=== PATIENT | male | born 1980 | race Caucasian/White ===

== ENCOUNTER 2016-07-28 08:10 | Emergency (ER) | payer BC, OTHER ==
[2016-07-28 08:15] VITALS: BP 137/95; PULSE 72; RESP 20; TEMP 98.8
--- NOTE | 2016-07-28 08:22 | ED ---
ENT HPI - General Chief complaint: ENT Stated complaint: sore throat Time Seen by Provider: 07/28/16 08:17 Source: patient, RN notes reviewed Mode of arrival: ambulatory Limitations: no limitations - History of Present Illness Initial comments: This a 36-year-old male presents emergency Department chief complaint sore throat. Patient states she's had sore throat for 1 week. Patient states is progressively getting worse. Patient states his tonsils are swollen. He did have some exudates. Patient's had low-grade temps at home. Patient's been taken Tylenol and Motrin. Patient denies any sick contacts no fatigue no history of mono. Patient offers no other complaints. - Related Data Previous Rx's Medication Instructions Recorded Acetaminophen-Codeine 300-30mg 1 each PO Q6H PRN #4 tablet 05/27/14 [Tylenol #3] Amoxicillin 500 mg PO Q8H #30 capsule 05/27/14 Ibuprofen [Motrin] 800 mg PO Q8HR PRN #30 tab 05/27/14 Amoxicillin 500 mg PO Q8H #30 capsule 07/28/16 Allergies Allergy/AdvReac Type Severity Reaction Status Date / Time No Known Allergies Allergy Verified 07/28/16 08:15 Review of Systems ROS Statement: Those systems with pertinent positive or pertinent negative responses have been documented in the HPI. ROS Other: All systems not noted in ROS Statement are negative. Past Medical History Past Medical History: No Reported History History of Any Multi-Drug Resistant Organisms: None Reported Past Surgical History: Hernia Repair Past Psychological History: No Psychological Hx Reported Smoking Status: Current every day smoker Past Alcohol Use History: None Reported Past Drug Use History: None Reported General Exam Limitations: no limitations General appearance: alert, in no apparent distress Head exam: Present: atraumatic, normocephalic, normal inspection Eye exam: Present: normal appearance, PERRL, EOMI. Absent: scleral icterus, conjunctival injection, periorbital swelling ENT exam: Present: normal exam, mucous membranes moist, TM's normal bilaterally , normal external ear exam. Absent: normal oropharynx (Erythema) Neck exam: Present: normal inspection, full ROM, lymphadenopathy. Absent: tenderness, meningismus Respiratory exam: Present: normal lung sounds bilaterally. Absent: respiratory distress, wheezes, rales, rhonchi, stridor Cardiovascular Exam: Present: regular rate, normal rhythm, normal heart sounds. Absent: systolic murmur, diastolic murmur, rubs, gallop, clicks Neurological exam: Present: alert Course Vital Signs 07/28/16 08:13 Temperature 98.8 F Pulse Rate 72 Respiratory 20 Rate Blood Pressure 137/95 O2 Sat by Pulse 95 Oximetry Medical Decision Making - Medical Decision Making 36-year-old present for sore throat. Patient has erythematous posterior pharynx ,'s lymphadenopathy erythematous tonsils. Abdomen present for 1 week he we treated with Amoxil at this time. Disposition Clinical Impression: Acute pharyngitis Disposition: HOME SELF-CARE Condition: Stable Instructions: Pharyngitis (ED) Additional Instructions: Please return to the Emergency Department if symptoms worsen or any other concerns. Prescriptions: Amoxicillin 500 mg PO Q8H #30 capsule Referrals: None,Stated [Primary Care Provider] - 1-2 days Time of Disposition: 08:22
== END 2016-07-28 08:27 | disposition home or self-care (01) ==
LOC: EC 08:10
DX: J02.9 Acute pharyngitis, unspecified (principal); F17.200 Nicotine dependence, unspecified, uncomplicated
CPT/HCPCS: 99282

== ENCOUNTER 2017-03-21 15:07 | Emergency (ER) | payer OTHER ==
[2017-03-21 15:45] VITALS: BP 136/93; PULSE 88; RESP 20; TEMP 98.1
--- NOTE | 2017-03-21 16:23 | ED ---
Skin/Abscess/FB HPI - General Chief complaint: Skin/Abscess/Foreign Body Stated complaint: bumps on lower back Time Seen by Provider: 03/21/17 15:55 Source: patient Mode of arrival: ambulatory Limitations: no limitations - History of Present Illness Initial comments: 36-year-old male patient presented to the emergency room today for evaluation of rash to his lower back. Patient states that symptoms started proximal july 3 days ago. He states that the rash has started to spread. He states that the rash is very painful. He denies any fevers or chills with this. Denies any drainage from the rash area. Denies any contact with new substances including soaps, lotions, creams, detergents, foods, or medications. Patient states that he did have chickenpox as a child. Denies any history of shingles. Patient denies any recent shortness breath, chest pain, abdominal pain, nausea, vomiting , diarrhea, constipation, back pain, numbness, tingling, dizziness, weakness, hematuria, dysuria, urinary urgency, urinary frequency, headache, visual changes , or any other complaints. - Related Data Previous Rx's Medication Instructions Recorded Acyclovir [Zovirax] 800 mg PO 5XD #35 tab 03/21/17 Hydrocodone/Acetaminophen [[place] 1 tab PO Q6HR PRN #10 tab 03/21/17 5-325] Ibuprofen [Motrin] 600 mg PO Q8HR PRN #30 tab 03/21/17 Allergies Allergy/AdvReac Type Severity Reaction Status Date / Time Milk Containing Products AdvReac Swelling Verified 03/21/17 16:03 [Dairy] tomato AdvReac Swelling Verified 03/21/17 16:03 Review of Systems ROS Statement: Those systems with pertinent positive or pertinent negative responses have been documented in the HPI. ROS Other: All systems not noted in ROS Statement are negative. Past Medical History Past Medical History: No Reported History History of Any Multi-Drug Resistant Organisms: None Reported Past Surgical History: Hernia Repair Past Psychological History: No Psychological Hx Reported Smoking Status: Current every day smoker Past Alcohol Use History: None Reported Past Drug Use History: None Reported General Exam Limitations: no limitations General appearance: alert, in no apparent distress, other (This is a well- developed, well-nourished adult male patient in no acute distress. Vital signs upon presentation are temperature 98.1F, pulse 88, respirations 20, blood pressure 136/93, pulse ox 100% on room air.) Eye exam: Present: normal appearance, PERRL, EOMI. Absent: scleral icterus, conjunctival injection, periorbital swelling ENT exam: Present: normal exam, normal oropharynx, mucous membranes moist Respiratory exam: Present: normal lung sounds bilaterally. Absent: respiratory distress, wheezes, rales, rhonchi, stridor Cardiovascular Exam: Present: regular rate, normal rhythm, normal heart sounds. Absent: systolic murmur, diastolic murmur, rubs, gallop, clicks Back exam: Present: rash noted (Noted to the lower back. Vesicular, surrounding erythema, 2 patches of grouped vesicles following the L4 distribution towards the right.) Neurological exam: Present: alert, oriented X3, CN II-XII intact Psychiatric exam: Present: normal affect, normal mood Skin exam: Present: warm, dry, intact, normal color. Absent: rash Course Vital Signs 03/21/17 15:42 Temperature 98.1 F Pulse Rate 88 Respiratory 20 Rate Blood Pressure 136/93 O2 Sat by Pulse 100 Oximetry Medical Decision Making - Medical Decision Making 36-year-old male patient presented to the emergency department today for complaints of rash to his lower back. Symptoms started approximately 3 days ago. Physical examination did reveal 2 areas of grouped vesicles to the lower back. Symptoms are consistent with shingles. Symptoms followed the L4 distribution. Patient denied any fever or chills. Patient will be discharged home with prescription for acyclovir, ibuprofen, and Warba for pain control. He is instructed to follow-up with his primary care physician for recheck in 1- 2 days. He is instructed to return here immediately for any new, worsening, or concerning symptoms. He verbalizes understanding and agrees with this plan. Disposition Clinical Impression: Shingles Disposition: HOME SELF-CARE Condition: Good Instructions: Shingles (ED) Additional Instructions: Take medications as directed. Follow-up with her primary care physician for recheck in 1-2 days. Return here immediately for any new, worsening, or concerning symptoms. Prescriptions: Acyclovir [Zovirax] 800 mg PO 5XD #35 tab Hydrocodone/Acetaminophen [Warba 5-325] 1 tab PO Q6HR PRN #10 tab PRN Reason: Pain Ibuprofen [Motrin] 600 mg PO Q8HR PRN #30 tab PRN Reason: Pain Referrals: None,Stated [Primary Care Provider] - 1-2 days Time of Disposition: 16:22
== END 2017-03-21 16:31 | disposition home or self-care (01) ==
LOC: EC 15:07
DX: B02.9 Zoster without complications (principal); F17.200 Nicotine dependence, unspecified, uncomplicated; Z91.011 Allergy to milk products; Z91.018 Allergy to other foods
CPT/HCPCS: 99283

== ENCOUNTER 2018-01-07 13:42 | Emergency (ER) | payer OTHER ==
[2018-01-07 13:57] VITALS: BP 132/87; PULSE 62; RESP 18; TEMP 98.1
[2018-01-07] MEDS ORDERED: IBUPROFEN 600 MG TAB PO STA (14:02)
[2018-01-07] MEDS ORDERED: ACETAMINOPHEN TAB 500 MG TAB PO STA (14:02)
--- NOTE | 2018-01-07 14:20 | ED ---
ENT HPI - General Chief complaint: ENT Stated complaint: Throat pain Time Seen by Provider: 01/07/18 13:49 Source: patient Mode of arrival: ambulatory Limitations: no limitations - History of Present Illness Initial comments: 37-year-old male patient presents to the emergency department today for evaluation of upper respiratory symptoms starting this morning. Chief complaint is sore throat. Patient states it feels swollen and hurts to swallow. States the pain is equal on both sides. States he has associated nasal congestion and cough. Denies any sputum production. He denies fevers or chills. He denies taking any medication for his symptoms. Patient denies any recent rash, shortness breath, chest pain, abdominal pain, nausea, vomiting, diarrhea, constipation, back pain, numbness, tingling, dizziness, weakness, hematuria, dysuria, urinary urgency, urinary frequency, headache, visual changes , or any other complaints. - Related Data Previous Rx's Medication Instructions Recorded Acyclovir [Zovirax] 800 mg PO 5XD #35 tab 03/21/17 Hydrocodone/Acetaminophen [[place] 1 tab PO Q6HR PRN #10 tab 03/21/17 5-325] Ibuprofen [Motrin] 600 mg PO Q8HR PRN #30 tab 03/21/17 Allergies Allergy/AdvReac Type Severity Reaction Status Date / Time Milk Containing Products AdvReac Swelling Verified 03/21/17 16:03 [Dairy] tomato AdvReac Swelling Verified 03/21/17 16:03 Review of Systems ROS Statement: Those systems with pertinent positive or pertinent negative responses have been documented in the HPI. ROS Other: All systems not noted in ROS Statement are negative. Past Medical History Past Medical History: No Reported History History of Any Multi-Drug Resistant Organisms: None Reported Past Surgical History: Hernia Repair Past Psychological History: No Psychological Hx Reported Smoking Status: Current every day smoker Past Alcohol Use History: None Reported Past Drug Use History: None Reported General Exam Limitations: no limitations General appearance: alert, in no apparent distress, other (This well-developed, well-nourished adult male patient in no acute distress. Vital signs upon presentation are temperature 98.1F, pulse 62, respirations 18, blood pressure 132/87, pulse ox 95% on room air.) Eye exam: Present: normal appearance, PERRL, EOMI. Absent: scleral icterus, conjunctival injection, periorbital swelling ENT exam: Present: normal exam, mucous membranes moist, TM's normal bilaterally , normal external ear exam. Absent: normal oropharynx (Pharyngeal erythema, tonsillar hypertrophy, no tonsillar exudate noted) Neck exam: Present: normal inspection. Absent: tenderness, meningismus, lymphadenopathy Respiratory exam: Present: normal lung sounds bilaterally. Absent: respiratory distress, wheezes, rales, rhonchi, stridor Cardiovascular Exam: Present: regular rate, normal rhythm, normal heart sounds. Absent: systolic murmur, diastolic murmur, rubs, gallop, clicks GI/Abdominal exam: Present: soft, normal bowel sounds. Absent: distended, tenderness, guarding, rebound, rigid Neurological exam: Present: alert, oriented X3, CN II-XII intact Psychiatric exam: Present: normal affect, normal mood Skin exam: Present: warm, dry, intact, normal color. Absent: rash Course Vital Signs 01/07/18 13:54 Temperature 98.1 F Pulse Rate 62 Respiratory 18 Rate Blood Pressure 132/87 O2 Sat by Pulse 95 Oximetry Medical Decision Making - Medical Decision Making 37-year-old male patient presented to the emergency department today for evaluation of upper respiratory symptoms with chief complaint of sore throat. Physical examination did reveal pharyngeal erythema and tonsillar hypertrophy. There is no tonsillar exudate or lymphadenopathy. Patient is afebrile with normal vital signs. Strep screen was negative. Patient symptoms are consistent with viral upper respiratory infection. He is educated regarding supportive care. Instructed to take Profen for anti-inflammatory effects. Instructed to take [id number] nasal decongestants. He is instructed to follow-up with his primary care physician for recheck in 1-2 days. Return parameters discussed in detail. He verbalizes understanding and agrees with this plan. - Lab Data Lab Results 01/07/18 Range/Units 14:14 Group A Strep Rapid Negative (Negative) Disposition Clinical Impression: Viral upper respiratory infection Disposition: HOME SELF-CARE Condition: Good Instructions: Upper Respiratory Infection (ED) Additional Instructions: Increase fluids. Take [id number] nasal decongestants for symptom relief. Take Tylenol and Motrin for pain and fever control. Follow-up with your primary care physician for recheck in 1-2 days. Return here immediately for any new, worsening, or concerning symptoms. Is patient prescribed a controlled substance at d/c from ED?: No Referrals: Genoveva Palacios MD [Primary Care Provider] - 1-2 days Time of Disposition: 14:45
== END 2018-01-07 14:59 | disposition home or self-care (01) ==
LOC: EC 13:42
DX: J06.9 Acute upper respiratory infection, unspecified (principal); F17.200 Nicotine dependence, unspecified, uncomplicated; Z91.011 Allergy to milk products; Z91.018 Allergy to other foods
CPT/HCPCS: 87081; 87430; 99283

== ENCOUNTER 2018-06-11 08:41 | Emergency (ER) | payer OTHER ==
[2018-06-11 08:56] VITALS: RESP 18
--- NOTE | 2018-06-11 10:49 | ED ---
ENT HPI - General Chief complaint: ENT Stated complaint: poss strep throat Time Seen by Provider: 06/11/18 09:43 Source: patient, RN notes reviewed Mode of arrival: ambulatory Limitations: no limitations - History of Present Illness Initial comments: 37-year-old male presents emergency Department for fever cough congestion sore throat. Patient states she just feels achy all does not feel well. Patient's concerned about possible strep throat. Patient does admit that he has a cough which is nonproductive denies any chest pain no shortness of breath. Denies any nausea vomiting. Patient has not taken any recent Tylenol Motrin. - Related Data Previous Rx's Medication Instructions Recorded Amoxicillin 875 mg PO Q12HR #20 tablet 06/11/18 Allergies Allergy/AdvReac Type Severity Reaction Status Date / Time Milk Containing Products AdvReac Swelling Verified 06/11/18 10:26 [Dairy] tomato AdvReac Swelling Verified 06/11/18 10:26 Review of Systems ROS Statement: Those systems with pertinent positive or pertinent negative responses have been documented in the HPI. ROS Other: All systems not noted in ROS Statement are negative. Past Medical History Past Medical History: No Reported History History of Any Multi-Drug Resistant Organisms: None Reported Past Surgical History: Hernia Repair Past Psychological History: No Psychological Hx Reported Smoking Status: Current every day smoker Past Alcohol Use History: None Reported Past Drug Use History: None Reported General Exam Limitations: no limitations General appearance: alert, in no apparent distress Head exam: Present: atraumatic, normocephalic, normal inspection Eye exam: Present: normal appearance, PERRL, EOMI. Absent: scleral icterus, conjunctival injection, periorbital swelling ENT exam: Present: mucous membranes moist, TM's normal bilaterally. Absent: normal exam, normal oropharynx (Mild erythema) Neck exam: Present: normal inspection. Absent: tenderness, meningismus, lymphadenopathy Respiratory exam: Present: normal lung sounds bilaterally. Absent: respiratory distress, wheezes, rales, rhonchi, stridor Cardiovascular Exam: Present: regular rate, normal rhythm, normal heart sounds. Absent: systolic murmur, diastolic murmur, rubs, gallop, clicks GI/Abdominal exam: Present: soft, normal bowel sounds. Absent: distended, tenderness, guarding, rebound, rigid Skin exam: Present: warm, dry, intact, normal color. Absent: rash Course Vital Signs 06/11/18 08:52 Temperature 98.8 F Pulse Rate 90 Respiratory 18 Rate Blood Pressure 143/94 O2 Sat by Pulse 98 Oximetry Medical Decision Making - Medical Decision Making 37-year-old male presented from for fever cough congestion is breath. Patient's strep is negative, influenza negative. Patient has a restaurant infection possible underlying pharyngitis we treated. Return parameters were discussed. - Lab Data Lab Results 06/11/18 Range/Units 10:10 Influenza Type A RNA Not Detected (Not Detectd) Influenza Type B (PCR) Not Detected (Not Detectd) Group A Strep Rapid Negative (Negative) Disposition Clinical Impression: Pharyngitis Disposition: HOME SELF-CARE Condition: Stable Instructions (If sedation given, give patient instructions): Pharyngitis (ED), Upper Respiratory Infection (ED) Additional Instructions: Please return to the Emergency Department if symptoms worsen or any other concerns. Prescriptions: Amoxicillin 875 mg PO Q12HR #20 tablet Is patient prescribed a controlled substance at d/c from ED?: No Referrals: Genoveva Palacios MD [Primary Care Provider] - 1-2 days Time of Disposition: 11:20
[2018-06-11 11:40] VITALS: BP 132/89; PULSE 75; TEMP 98.5
== END 2018-06-11 11:40 | disposition home or self-care (01) ==
LOC: EC 08:41
DX: J02.9 Acute pharyngitis, unspecified (principal); F17.200 Nicotine dependence, unspecified, uncomplicated; Z91.011 Allergy to milk products; Z91.018 Allergy to other foods
CPT/HCPCS: 87081; 87430; 87502; 99283

== ENCOUNTER 2019-11-19 21:22 | Emergency (ER) | payer OTHER ==
[2019-11-19] MEDS ORDERED: KETOROLAC 15 MG/ML 1 ML VIAL IM STA (21:48)
--- NOTE | 2019-11-19 22:06 | XR ---
EXAMINATION TYPE: XR knee 4V RT DATE OF EXAM: 11/19/2019 CLINICAL HISTORY: pain TECHNIQUE: Three views of the right knee are obtained. COMPARISON: None. FINDINGS: There is no acute fracture/dislocation. The tri-compartment joint spaces appear within no rmal limits. Small suprapatellar joint effusion. Prepatellar soft tissue edema noted. IMPRESSION: There is no acute fracture or dislocation.ICD 10 NO FRACTURE, INITIAL EVALUATION
[2019-11-19 22:34] VITALS: RESP 19; TEMP 97.8
--- NOTE | 2019-11-19 22:51 | ED ---
General Adult HPI - General Chief complaint: Extremity Injury, Lower Stated complaint: [facility] R Knee Injury Time Seen by Provider: 11/19/19 21:37 Source: patient, RN notes reviewed, old records reviewed Mode of arrival: ambulatory Limitations: no limitations - History of Present Illness Initial comments: 39-year-old male patient is either chief complaint right knee pain. Patient reports that yesterday he was stepping on a highlow. He reports that he slipped and then his other knee came up and hit the bottom of a piece of steel. Patient is having pain in the anterior knees having pain with ambulation. Denies falling to the ground reports he caught himself. Denies any other acute complaints. Systemic: Pt denies fatigue, fever/chills, rash. Pt denies weakness, night sweats, weight loss. Neuro: Pt denies headache, visual disturbances, syncope or pre-syncope. HEENT: Pt denies ocular discharge or irritation, otalgia, rhinorrhea, phar yngitis or notable lymphadenopathy. Cardiopulmonary: Pt denies chest pain, SOB, heart palpitations, dyspnea on exertion. Abdominal/GI: Pt denies abdominal pain, n/v/d. : Pt denies dysuria, burning w/ urination, frequency/urgency. Denies new onset urinary or bowel incontinence. MSK: Pt denies loss of strength in extremities. Neuro: Pt denies new onset weakness, paresthesias. - Related Data Previous Rx's Medication Instructions Recorded Amoxicillin 875 mg PO Q12HR #20 tablet 06/11/18 Allergies Allergy/AdvReac Type Severity Reaction Status Date / Time Milk Containing Products AdvReac Swelling Verified 11/19/19 21:32 [Dairy] tomato AdvReac Swelling Verified 11/19/19 21:32 Review of Systems ROS Statement: Those systems with pertinent positive or pertinent negative responses have been documented in the HPI. ROS Other: All systems not noted in ROS Statement are negative. Past Medical History Past Medical History: No Reported History History of Any Multi-Drug Resistant Organisms: None Reported Past Surgical History: Hernia Repair Past Psychological History: No Psychological Hx Reported Smoking Status: Current every day smoker Past Alcohol Use History: None Reported Past Drug Use History: None Reported General Exam - General Exam Comments Initial Comments: Constitutional: NAD, AOX3, Pt has pleasant affect. HEENT: NC/AT, trachea midline, neck supple, no lymphadenopathy. External ears appear normal, without discharge. Mucous membranes moist. EOM intact. There is no scleral icterus. No pallor noted. Cardiopulmonary: RRR, no murmurs, rubs or gallops, no JVD noted. Lungs CTAB in anterior and posterior lizama. No peripheral edema. Neuro: CN II-XII grossly intact. No raccon eyes MSK: Right anterior knee mildly tender to palpation. Mild amount of anterior swelling. Full active range of motion. Ambulatory with some discomfort. No posterior calf tenderness bilaterally, homans sign negative bilaterally. Posterior tibialis. Sensation intact in upper and lower extremities. Full active ROM in upper and lower extremities, 5/5 stregnth. Limitations: no limitations Course Vital Signs 11/19/19 11/19/19 21:29 22:31 Temperature 98.1 F 97.8 F Pulse Rate 84 57 L Respiratory 18 19 Rate Blood Pressure 153/97 134/86 O2 Sat by Pulse 97 97 Oximetry Medical Decision Making - Medical Decision Making 39-year-old male patient presents ED chief complaint right knee pain/injury. Patient vital signs are stable, afebrile. Physical exam displayed right knee mildly tender to palpation. Plain film was negative for acute process. Patient discharge with crutches as needed will follow up with orthopedics and occupational health for clearance to return to work. Case discussed with Dr. Quiroz. Disposition Clinical Impression: Knee contusion Disposition: HOME SELF-CARE Condition: Stable Instructions (If sedation given, give patient instructions): Knee Pain (ED) Additional Instructions: Follow-up with primary care provider in 1-2 days. Follow-up with either occupational health orthopedics in 1-2 days and for clearance to return to work. Use crutches as needed. Use Tylenol andMotrin as needed. return to ER if any worsening symptoms. Is patient prescribed a controlled substance at d/c from ED?: No Referrals: Genoveva Palacios MD [Primary Care Provider] - 1-2 days Isaac Caba MD [STAFF PHYSICIAN] - 1-2 days
[2019-11-19 23:10] VITALS: BP 132/95; PULSE 64
== END 2019-11-19 23:10 | disposition home or self-care (01) ==
LOC: EC 21:22
DX: S80.01XA Contusion of right knee, initial encounter (principal); F17.200 Nicotine dependence, unspecified, uncomplicated; Z91.011 Allergy to milk products; Z91.018 Allergy to other foods; W01.0XXA Fall on same level from slipping, tripping and stumbling without subsequent striking against object, initial encounter
CPT/HCPCS: 73564; 96372; 99284; J1885

== ENCOUNTER 2021-08-15 09:54 | Emergency (ER) | payer OTHER, BC ==
[2021-08-15 10:13] VITALS: RESP 16; TEMP 98.1
[2021-08-15] MEDS ORDERED: KETOROLAC 15 MG/ML 1 ML VIAL IM STA (10:59)
[2021-08-15] MEDS ORDERED: PENICILLIN G BENZATHINE 1,200,000 UNIT/2 ML SYRINGE IM STA (11:41)
--- NOTE | 2021-08-15 11:48 | ED ---
ENT HPI - General Chief complaint: ENT Stated complaint: throat pain Time Seen by Provider: 08/15/21 10:29 Source: patient, RN notes reviewed Mode of arrival: ambulatory Limitations: no limitations - History of Present Illness Initial comments: This is a 41-year-old male who presents to the emergency department for a sore throat. Patient states that symptoms began yesterday. He has a history of recurrent episodes of strep throat. Denies any coughing or fevers. States that yesterday he felt like he was swallowing glass. He also feels enlarged lymph nodes on his neck. He does have enlarged tonsils, and he and his PCP have been discussing a tonsillectomy. He has also seen white spots on his tonsils. Denies any fevers, chills, cough, dyspnea, chest pain, palpitations, abdominal pain, nausea, vomiting, diarrhea, back pain, or headaches. MD complaint: sore throat Onset/Timin -: days(s) Location: throat Associated Symptoms: pain with swallowing, sore throat - Related Data Previous Rx's Medication Instructions Recorded Amoxicillin 875 mg PO Q12HR #20 tablet 06/11/18 Allergies Allergy/AdvReac Type Severity Reaction Status Date / Time Milk Containing Products AdvReac Swelling Verified 08/15/21 10:13 [Dairy] tomato AdvReac Swelling Verified 08/15/21 10:13 Review of Systems ROS Statement: Those systems with pertinent positive or pertinent negative responses have been documented in the HPI. ROS Other: All systems not noted in ROS Statement are negative. Past Medical History Past Medical History: No Reported History History of Any Multi-Drug Resistant Organisms: None Reported Past Surgical History: Hernia Repair Past Psychological History: No Psychological Hx Reported Smoking Status: Current every day smoker Past Alcohol Use History: None Reported Past Drug Use History: None Reported General Exam Limitations: no limitations General appearance: alert, in no apparent distress Head exam: Present: atraumatic, normocephalic, normal inspection Expanded Throat exam: other (3+ tonsillar hypertrophy with exudates. Pharyngeal erythema.) Neck exam: Present: other (Anterior cervical lymphadenopathy.) Respiratory exam: Present: normal lung sounds bilaterally. Absent: respiratory distress, wheezes, rales, rhonchi, stridor Cardiovascular Exam: Present: regular rate, normal rhythm, normal heart sounds. Absent: systolic murmur, diastolic murmur, rubs, gallop, clicks Neurological exam: Present: alert, oriented X3, CN II-XII intact Psychiatric exam: Present: normal affect, normal mood Skin exam: Present: warm, dry, intact, normal color. Absent: rash Course Vital Signs 08/15/21 08/15/21 10:11 12:22 Temperature 98.1 F Pulse Rate 89 64 Respiratory 16 16 Rate Blood Pressure 130/88 148/92 O2 Sat by Pulse 98 Oximetry Medical Decision Making - Medical Decision Making This is a 41-year-old male who presents to the emergency department for a sore throat. Given the tonsilar hypertrophy and exudates, patient's symptoms are consistent with strep pharyngitis. Patient does note that it is common for him to have a negative rapid strep test with a positive culture. Whenever he is treated with an antibiotic, symptoms improve rapidly. Will treat the patient with IM penicillin G given his history for strep throat, his symptoms, and phy sical examination. IM Toradol provided for pain. Advised to alternate with Tylenol and ibuprofen at home for pain. Return precautions reviewed in depth, the patient is instructed to return to the emergency department with any new, worsening, or concerning symptoms. Patient verbalized understanding. This case was discussed in detail with the attending ED physician. Presentation, findings, and treatment plan discussed in detail as well. - Lab Data Lab Results 08/15/21 Range/Units 11:06 Group A Strep Rapid Negative (Negative) Disposition Clinical Impression: Pharyngitis Disposition: HOME SELF-CARE Instructions (If sedation given, give patient instructions): Pharyngitis (ED), Strep Throat (ED), Tonsillitis (ED) Additional Instructions: Return to the emergency department with any new, worsening, or concerning symptoms. Alternate with Tylenol and ibuprofen as needed for pain. Is patient prescribed a controlled substance at d/c from ED?: No Referrals: Genoveva Palacios MD [Primary Care Provider] - 1-2 days
[2021-08-15 12:23] VITALS: BP 148/92; PULSE 64
== END 2021-08-15 12:22 | disposition home or self-care (01) ==
LOC: EC 09:54
DX: J02.9 Acute pharyngitis, unspecified (principal); F17.200 Nicotine dependence, unspecified, uncomplicated; Z91.018 Allergy to other foods; Z91.011 Allergy to milk products
CPT/HCPCS: 87081; 87430; 99283; 96372; J0561; J1885

== ENCOUNTER 2022-04-12 08:19 | Emergency (ER) | payer BC, OTHER ==
[2022-04-12 08:32] VITALS: BP 136/92; PULSE 68; RESP 18; TEMP 98
--- NOTE | 2022-04-12 08:45 | ED ---
Extremity Problem HPI - General Chief complaint: Extremity Problem,Nontraumatic Stated complaint: rt shoulder pain Time Seen by Provider: 04/12/22 08:33 Source: patient, RN notes reviewed Mode of arrival: ambulatory Limitations: no limitations - History of Present Illness Initial comments: This is a 41-year-old male who presents to the emergency department for right shoulder pain. Patient states that this been present for 2 weeks. Denies any injuries. He takes Aleve, which he states is beneficial. The pain is the most prominent when he tries to sleep, because he sleeps on the right side. Patient does have notable psoriasis on the bilateral forearms. Denies any history of psoriatic arthritis. He is not currently being treated for the psoriasis. The pain is exacerbated by movement. He has not noticed any swelling or increase in redness. Denies any fevers, chills, sore throat, cough, dyspnea, chest pain, palpitations, abdominal pain, nausea, vomiting, diarrhea, back pain, or headaches. MD Complaint: extremity pain Onset/Timin -: week(s) Location: right, upper extremity Associated Symptoms: denies other symptoms - Related Data Previous Rx's Medication Instructions Recorded Amoxicillin 875 mg PO Q12HR #20 tablet 06/11/18 Cyclobenzaprine [Flexeril] 5 mg PO TID PRN #15 tablet 04/12/22 predniSONE 50 mg PO DAILY 5 Days #5 tab 04/12/22 Allergies Allergy/AdvReac Type Severity Reaction Status Date / Time Milk Containing Products AdvReac Swelling Verified 04/12/22 08:32 [Dairy] tomato AdvReac Swelling Verified 04/12/22 08:32 Review of Systems ROS Statement: Those systems with pertinent positive or pertinent negative responses have been documented in the HPI. ROS Other: All systems not noted in ROS Statement are negative. Past Medical History Past Medical History: No Reported History History of Any Multi-Drug Resistant Organisms: None Reported Past Surgical History: Hernia Repair Past Psychological History: No Psychological Hx Reported Smoking Status: Current every day smoker Past Alcohol Use History: None Reported Past Drug Use History: None Reported General Exam Limitations: no limitations General appearance: alert, in no apparent distress Head exam: Present: atraumatic, normocephalic, normal inspection Respiratory exam: Present: normal lung sounds bilaterally. Absent: respiratory distress, wheezes, rales, rhonchi, stridor Cardiovascular Exam: Present: regular rate, normal rhythm, normal heart sounds. Absent: systolic murmur, diastolic murmur, rubs, gallop, clicks Extremities exam: Present: other (No swelling, erythema, or ecchymosis to the right shoulder. There is no overlying tenderness. Pain with adduction and inversion. Elevation of the arm induces pain at approximately 180. Driver Medic strength is equal and intact. 2+ radial pulses. Capillary refill less than 1 second.) Skin exam: Present: other (Crusting and scaling consistent with psoriasis on the bilateral forearms.) Course Vital Signs 04/12/22 08:30 Temperature 98 F Pulse Rate 68 Respiratory 18 Rate Blood Pressure 136/92 O2 Sat by Pulse 100 Oximetry Medical Decision Making - Medical Decision Making This is a 41-year-old male who presents to the emergency department for right shoulder pain. Was pt. sent in by a medical professional or institution? @ -No Did you speak to anyone other than the patient for history? @ -No Did you review nursing and triage notes? @ -Agree, accurate with regards to the patient's symptoms. Were old charts reviewed? @ -No Differential Diagnosis? @ -Fracture, rotator cuff injury, tendinitis, psoriatic arthritis, rheumatoid arthritis, DVT, dislocation, this is not an to be an all-inclusive list. X-rays interpreted by me (1pt min.)? @ -My interpretation of the XR of the right shoulder identifies no fractures or dislocations. What testing was considered but not performed? (CT, X-rays, U/S, labs)? Why? @ -None What meds were considered but not given? Why? @ -I offered Toradol for the pain, however he declined. Did you discuss the management of the patient with other professionals? @ -No Did you reconcile home meds? @ -No Was smoking cessation discussed for >3mins.? @ -No Was critical care preformed (if so, how long)? @ -No Were there social determinants of health that impacted care today? How? (Homelessness, low income, unemployed, alcoholism, drug addiction, transportation, low edu. Level, literacy, decrease access to med. care, care home, rehab)? @ -No Was there de-escalation of care discussed even if they declined? (Discuss DNR or withdrawal of care, Hospice)? @ -No What co-morbidities impacted this encounter? (DM, HTN, Smoking, COPD, CAD, Cancer, CVA, Hep., AIDS, mental health diagnosis, sleep apnea, morbid obesity)? @ -Psoriasis Was patient admitted / discharged? @ -Discharged. XR of the right shoulder obtained revealing no acute findings. No abnormalities have been identified at this time. Rx for 5 day course of Prednisone provided. Advised he avoid taking over the counter antiinflammatories with the prednisone. Rx for Flexeril provided as well. Advised that this may be sedating and he should take it at night until he knows how it affects him. Also advised he avoid driving or operating machinery when taking this. Information for orthopedic follow up provided, advised he contact them for a follow up appointment. Undiagnosed new problem with uncertain prognosis? @ -Right shoulder pain Drug Therapy requiring intensive monitoring for toxicity (Heparin, Nitro, Insulin, Cardizem)? @ -None Were any procedures done? @ -None Diagnosis/symptom? @ -Right shoulder pain Acute, or Chronic, or Acute on Chronic? @ -Acute Uncomplicated (without systemic symptoms) or Complicated (systemic symptoms)? @ -Uncomplicated Side effects of treatment? @ -None Exacerbation, Progression, or Severe Exacerbation] @ -Not applicable Poses a threat to life or bodily function? @ -The pain is impacting his ability to use his right arm. Return precautions reviewed in depth, the patient is instructed to return to the emergency department with any new, worsening, or concerning symptoms. Patient verbalized understanding. This case was discussed in detail with the attending ED physician, Dr. Rivera. Presentation, findings, and treatment plan discussed in detail as well. - Radiology Data Radiology results: report reviewed, image reviewed Disposition Clinical Impression: Right shoulder pain Disposition: HOME SELF-CARE Instructions (If sedation given, give patient instructions): Shoulder Pain (ED) Additional Instructions: Return to the emergency department with any new, worsening, or concerning symptoms. Take the prednisone daily for 5 days. Do not take [id number] anti-inflammatories such as Aleve or Advil when taking this. You may also take Tylenol with this. You can take the Flexeril as 1-2 tablets up to 3 times daily. This may be sedating and you should take your first dose at night until you know how it affects you. Apply heat a a few times each day as well. Contact orthopedics as listed below for a follow-up appointment. Follow up with your primary care provider in 1-2 days. Prescriptions: Cyclobenzaprine [Flexeril] 5 mg PO TID PRN #15 tablet PRN Reason: Pain predniSONE 50 mg PO DAILY 5 Days #5 tab Is patient prescribed a controlled substance at d/c from ED?: No Referrals: Genoveva Palacios MD [STAFF PHYSICIAN] - 1-2 days Henrry Lucero MD [Medical Doctor] - 1-2 days
--- NOTE | 2022-04-12 09:09 | XR ---
EXAMINATION TYPE: XR shoulder complete RT DATE OF EXAM: 04/12/2022 8:56 AM INDICATION: Patient age:Male; 41 years old; Reason for study: Pain; COMPARISON: None TECHNIQUE: The right shoulder was examined in AP, internally rotated and scapular Y projections. . FINDINGS: No evidence of acute osseous pathology, joint dislocation, or soft tissue swelling. The remaining por tions of the visualized chest are unremarkable. IMPRESSION: No acute osseous pathology.
== END 2022-04-12 10:20 | disposition home or self-care (01) ==
LOC: EC 08:19
DX: M25.511 Pain in right shoulder (principal); F17.200 Nicotine dependence, unspecified, uncomplicated; Z91.011 Allergy to milk products; Z91.018 Allergy to other foods
CPT/HCPCS: 99283